=== PATIENT | female | born 1940 | race Caucasian/White ===

== ENCOUNTER 2016-12-21 07:00 | Inpatient (IN) | payer MEDICARE, OTHER ==
[~2016-12-21] VITALS: Ht 161 cm; Wt 71.0 kg
[2016-12-22 04:18] LABS: HCT 35.6 % (37.0-47.0); HGB 11.5 g/dl (12.5-16.0); MCH 29.8 pg (25.0-31.0); MCHC 32.3 g/dL (32.0-36.0); MCV 92.2 fL (78.0-100.0); MPV 9.2 fL (6.0-9.5); RBC 3.86 M/uL (4.20-5.40); RDW 13.8 % (11.5-14.0); WBC 6.5 K/uL (4.0-10.5)
[2016-12-22 04:39] LABS: ALBUMIN 3.9 g/dL (3.4-4.8); BILIRUBIN - TOTAL 0.5 mg/dL (0.1-1.0); CREATININE 0.6 mg/dL (0.5-1.0); GLOBULIN (CALCULATION) 1.9 g/dL (2.2-4.2); POTASSIUM 4.2 mmol/L (3.5-5.1); TOTAL PROTEIN 5.8 g/dL (6.4-8.3)
[2016-12-23 05:52] LABS: HCT 33.2 % (37.0-47.0); HGB 10.8 g/dl (12.5-16.0); MCH 30.4 pg (25.0-31.0); MCHC 32.5 g/dL (32.0-36.0); MCV 93.5 fL (78.0-100.0); MPV 9.5 fL (6.0-9.5); RBC 3.55 M/uL (4.20-5.40); RDW 14.2 % (11.5-14.0)
--- NOTE | 2016-12-24 01:27 | NUR ---
PT ASLEEP AND RESTING WELL, NO COMPLAINTS OF PAIN VERBALIZED.
[2016-12-24 05:14] LABS: HCT 33.2 % (37.0-47.0); HGB 10.8 g/dl (12.5-16.0); MCHC 32.5 g/dL (32.0-36.0); MCV 92.2 fL (78.0-100.0); MPV 9.3 fL (6.0-9.5); RBC 3.6 M/uL (4.20-5.40); WBC 6.2 K/uL (4.0-10.5)
== END 2016-12-24 15:41 | DRG 483 ==
LOC: FMS 08:30
PROVIDERS: Internal Medicine; ADMIT Legal Medicine
PROC: 0LS40ZZ Reposition Left Upper Arm Tendon, Open Approach (ICD-10-PCS; 2016-12-21)
PROC: 0RRK00Z Replacement of Left Shoulder Joint with Reverse Ball and Socket Synthetic Substitute, Open Approach (ICD-10-PCS; principal; 2016-12-21 09:30)
DX: M19.012 Primary osteoarthritis, left shoulder (principal); I10 Essential (primary) hypertension; Z88.1 Allergy status to other antibiotic agents; Z79.899 Other long term (current) drug therapy; Z87.440 Personal history of urinary (tract) infections
CPT/HCPCS: 36415; 73020; 80053; 86850; 86900; 86901; 88305; 88311; 94010; 94760; 97110; 97116; 97162; 97166; 97530-GP; 97535; C1713; C1776; J0131; J0697; J1885; J2270; J2405; J2704; J2795; J3010

== ENCOUNTER 2016-12-24 16:24 | Inpatient (IN) | payer MEDICARE, OTHER ==
[~2016-12-24] VITALS: Ht 160 cm; Wt 74.1 kg
--- NOTE | 2016-12-30 15:06 | NUR ---
COMPLETED D/C PAPERWORK WITH PT. SHE WILL D/C HOME ON 01/01/17. PT. WILL NOT REQUIRE ANY DME. SHE REQUESTS [facility] FOR PT/OT AND NURSING ASSESMENT. D/C NOTICE AND QUESTIONNARIE GIVEN.
--- NOTE | 2017-01-01 11:45 | NUR ---
PT. D/C HOME THIS DATE. PT. DOES NOT REQUIRE ANY DME. SHE REQUESTED [facility] FOR PT/OT AND NURSING ASSESSMENT. D/C NOTICE AND QUESTIONNAIRE GIVEN.
--- NOTE | 2017-01-01 11:50 | NUR ---
PT IN STABLE CONDITION. DISCUSSED DISCHARGE INSTRUCTIONS WITH PATIENT. NEW MEPILEX APPLIED TO INCISION. NO S/S OF INFECTION NOTED
== END 2017-01-01 11:51 | disposition home health service (06) | DRG 561 ==
LOC: FSNU 16:24
PROVIDERS: ADMIT Legal Medicine
DX: Z47.1 Aftercare following joint replacement surgery (principal); I10 Essential (primary) hypertension; Z96.612 Presence of left artificial shoulder joint; G47.33 Obstructive sleep apnea (adult) (pediatric); Z87.440 Personal history of urinary (tract) infections; R35.1 Nocturia; F41.9 Anxiety disorder, unspecified
CPT/HCPCS: 97110; 97116; 97161; 97166; 97530-GP; 97535

== ENCOUNTER 2017-03-21 11:45 | Emergency (ER) | payer MEDICARE, OTHER | END 2017-03-21 12:44 | disposition home or self-care (01) | LOC: FER 11:45 | DX: M70.22 Olecranon bursitis, left elbow (principal); I10 Essential (primary) hypertension; Z79.899 Other long term (current) drug therapy | CPT/HCPCS: 99283 ==